=== PATIENT | male | born 1950 | race Two or more races ===

== ENCOUNTER 2019-10-22 11:18 | Emergency (ER) | payer OTHER ==
[~2019-10-22] VITALS: Ht 167.6 cm; Wt 72.6 kg
[2019-10-22] MEDS ORDERED: NASAL MIST126 ML (12:08)
[2019-10-22] MEDS ORDERED: COZAAR50 MG (12:08)
[2019-10-22] MEDS ORDERED: PROMETH-CODEIN 65 ML PO (14:59)
== END 2019-10-22 17:20 | disposition home or self-care (01) ==
LOC: ER 11:18
DX: J40 Bronchitis, not specified as acute or chronic (principal); B34.9 Viral infection, unspecified